=== PATIENT | male | born 1975 | race Caucasian/White ===

== ENCOUNTER 2017-06-03 14:51 | Emergency (ER) | payer OTHER ==
[2017-06-03] MEDS ORDERED: NITROGLYCERIN (SL) 0.4 MG TAB SL (18:00)
[2017-06-03] MEDS: ASPIRIN 325 MG TAB PO (18:09)
[2017-06-03 18:11] LABS: ADD MAN DIFF? NO
[2017-06-03 18:13] LABS: BASOPHILS % 0.3 % (0.0-2.0); EOSINOPHILS # 0.3 10^3/ul (0.0-0.5); EOSINOPHILS % 2.1 % (0.0-7.0); HEMATOCRIT 49.2 % (42.0-52.0); HEMOGLOBIN 16.9 g/dl (14.0-18.0); LYMPHOCYTES # 3.1 10^3/ul (0.8-2.9); LYMPHOCYTES % 23.1 % (15.0-51.0); MEAN CORPUSCULAR HEMOGLOBIN 29.1 pg (29.0-33.0); MEAN CORPUSCULAR HGB CONC 34.3 g/dl (32.0-37.0); MEAN CORPUSCULAR VOLUME 84.7 fl (82.0-101.0); MONOCYTE # 0.7 10^3/ul (0.3-0.9); MONOCYTES % 5.3 % (0.0-11.0); NEUTROPHIL # 9.3 10^3/ul (1.6-7.5); PLATELET COUNT 195 10^3/UL (140-415); RED BLOOD COUNT 5.81 10^6/ul (4.70-6.10); RED CELL DISTRIBUTION WIDTH 13.2 % (11.5-14.5)
[2017-06-03 18:13] LABS: WHITE BLOOD COUNT 13.4 10^3/ul (4.8-10.8)
[2017-06-03 18:30] LABS: INR 0.97; PARTIAL THROMBOPLASTIN TIME 29.5 Sec (25.0-35.0)
[2017-06-03 18:31] LABS: ALANINE AMINOTRANSFERASE 46 IU/L (13-69); ALBUMIN/GLOBULIN RATIO 1.38; ALKALINE PHOSPHATASE 78 IU/L (42-121); ANION GAP 17 (8-16); ASPARTATE AMINO TRANSFERASE 23 IU/L (15-46); BILIRUBIN,INDIRECT 0.3 mg/dl (0-1.1); BILIRUBIN,TOTAL 0.3 mg/dl (0.2-1.3); BLOOD UREA NITROGEN 17 mg/dl (7-20); CALCIUM 10.1 mg/dl (8.4-10.2); CARBON DIOXIDE 25 mmol/L (21-31); CHLORIDE 103 mmol/L (97-110); CREATINE KINASE 141 IU/L (23-200); CREATININE 1.12 mg/dl (0.61-1.24); GLUCOSE 94 mg/dl (70-220); POTASSIUM 4.1 mmol/L (3.5-5.1); SODIUM 141 mmol/L (135-144); TOTAL PROTEIN 8.6 g/dl (6.1-8.1)
[2017-06-03 18:44] LABS: CK INDEX 1.1
[2017-06-03 18:45] LABS: B-TYPE NATRIURETIC PEPTIDE < 11 PG/ML (0-125); CK-MB 1.57 ng/ml (0.0-2.4); TROPONIN-I < 0.012 ng/ml (0.00-0.12)
[2017-06-03] MEDS: KETOROLAC 30 MG INJ IV (19:18)
== END 2017-06-03 19:26 | disposition home or self-care (01) ==
LOC: E/R 14:51
DX: M94.0 Chondrocostal junction syndrome [Tietze] (principal); F17.210 Nicotine dependence, cigarettes, uncomplicated; R40.2142 Coma scale, eyes open, spontaneous, at arrival to emergency department; R40.2252 Coma scale, best verbal response, oriented, at arrival to emergency department; R40.2362 Coma scale, best motor response, obeys commands, at arrival to emergency department; G44.209 Tension-type headache, unspecified, not intractable; R07.9 Chest pain, unspecified; Z79.82 Long term (current) use of aspirin
CPT/HCPCS: 36415; 70450; 71045; 80053; 82550; 82553; 83880; 84484; 85025; 85610; 85730; 93005; 99285-25

== ENCOUNTER 2017-12-20 15:35 | Emergency (ER) | payer OTHER ==
[2017-12-20 16:31] LABS: ADD MAN DIFF? NO
[2017-12-20] MEDS: IBUPROFEN 800 MG TAB PO (16:31)
[2017-12-20 16:36] LABS: WHITE BLOOD COUNT 10.6 10^3/ul (4.8-10.8)
[2017-12-20 16:36] LABS: BASOPHILS % 0.4 % (0.0-2.0); EOSINOPHILS # 0.2 10^3/ul (0.0-0.5); EOSINOPHILS % 2.1 % (0.0-7.0); HEMATOCRIT 45.8 % (42.0-52.0); HEMOGLOBIN 15.7 g/dl (14.0-18.0); LYMPHOCYTES % 28.7 % (15.0-51.0); MEAN CORPUSCULAR HEMOGLOBIN 29.5 pg (29.0-33.0); MEAN CORPUSCULAR HGB CONC 34.3 g/dl (32.0-37.0); MEAN CORPUSCULAR VOLUME 86.1 fl (82.0-101.0); MEAN PLATELET VOLUME 11.5 fl (7.4-10.4); MONOCYTE # 0.6 10^3/ul (0.3-0.9); MONOCYTES % 5.8 % (0.0-11.0); NEUTROPHIL # 6.7 10^3/ul (1.6-7.5); NEUTROPHILS % 62.8 % (39.0-77.0); PLATELET COUNT 195 10^3/UL (140-415); RED BLOOD COUNT 5.32 10^6/ul (4.70-6.10); RED CELL DISTRIBUTION WIDTH 12.6 % (11.5-14.5)
[2017-12-20 16:48] LABS: ADD UMIC NO; UR ASCORBIC ACID NEGATIVE (NEGATIVE); UR BILIRUBIN (Dip) NEGATIVE (NEGATIVE); UR BLOOD (Dip) NEGATIVE (NEGATIVE); UR CLARITY CLEAR (CLEAR); UR COLOR YELLOW (YELLOW); UR GLUCOSE (Dip) NEGATIVE (NEGATIVE); UR KETONES (Dip) NEGATIVE (NEGATIVE); UR LEUKOCYTE ESTERASE (Dip) NEGATIVE Leu/ul (NEGATIVE); UR NITRITE (Dip) NEGATIVE (NEGATIVE); UR SPECIFIC GRAVITY (Dip) 1.023 (1.003-1.030); UR TOTAL PROTEIN (Dip) NEGATIVE (NEGATIVE); UR UROBILINOGEN (Dip) 1+ mg/dL (NEGATIVE)
[2017-12-20 16:55] LABS: ANION GAP 16 (8-16); BLOOD UREA NITROGEN 13 mg/dl (7-20); CALCIUM 9.8 mg/dl (8.4-10.2); CARBON DIOXIDE 30 mmol/L (21-31); CHLORIDE 105 mmol/L (97-110); CHOLESTEROL 217 mg/dl (100-200); CREATININE 1.16 mg/dl (0.61-1.24); GLUCOSE 101 mg/dl (70-220); HDL CHOLESTEROL 27 mg/dl (27-67); INR 0.92; LDL CHOLESTEROL,CALCULATED 107 mg/dl; PARTIAL THROMBOPLASTIN TIME 28.1 Sec (25.0-35.0); PROTIME 12.4 Sec (11.9-14.9); SODIUM 147 mmol/L (135-144); TRIGLYCERIDES 414 mg/dl (0-149)
[2017-12-20 17:06] LABS: TROPONIN-I < 0.012 ng/ml (0.000-0.120)
[2017-12-20 17:07] LABS: AMPHETAMINE/METHAMPHETAMINE Negative (NEGATIVE); BARBITURATES Negative (NEGATIVE); BENZODIAZEPINES Negative (NEGATIVE); CANNABINOIDS Negative (NEGATIVE); COCAINE Negative (NEGATIVE); OPIATES Negative (NEGATIVE)
[2017-12-20 17:18] LABS: HEMOGLOBIN A1C 5.7 % (0-5.9)
== END 2017-12-20 20:47 | disposition home or self-care (01) ==
LOC: E/R 15:35
DX: R20.0 Anesthesia of skin (principal); F17.210 Nicotine dependence, cigarettes, uncomplicated; R07.9 Chest pain, unspecified; Z79.82 Long term (current) use of aspirin
CPT/HCPCS: 36415; 70450; 71045; 72125; 80048; 80061; 80307; 81003; 83036; 84484; 85025; 85610; 85730; 93005; 99285-25

== ENCOUNTER 2018-04-01 11:48 | Emergency (ER) | payer OTHER ==
[2018-04-01 13:41] LABS: ADD MAN DIFF? NO
[2018-04-01] MEDS: KETOROLAC 30 MG INJ IV (13:45)
[2018-04-01 13:48] LABS: WHITE BLOOD COUNT 10.8 10^3/ul (4.8-10.8)
[2018-04-01 13:48] LABS: BASOPHIL # 0.1 10^3/ul (0.0-0.1); BASOPHILS % 0.5 % (0.0-2.0); EOSINOPHILS # 0.2 10^3/ul (0.0-0.5); EOSINOPHILS % 1.6 % (0.0-7.0); HEMATOCRIT 47.5 % (42.0-52.0); LYMPHOCYTES # 2.9 10^3/ul (0.8-2.9); LYMPHOCYTES % 26.4 % (15.0-51.0); MEAN CORPUSCULAR HEMOGLOBIN 29.1 pg (29.0-33.0); MEAN CORPUSCULAR HGB CONC 33.7 g/dl (32.0-37.0); MEAN CORPUSCULAR VOLUME 86.4 fl (82.0-101.0); MEAN PLATELET VOLUME 11.7 fl (7.4-10.4); MONOCYTE # 0.5 10^3/ul (0.3-0.9); MONOCYTES % 4.6 % (0.0-11.0); NEUTROPHIL # 7.2 10^3/ul (1.6-7.5); NEUTROPHILS % 66.5 % (39.0-77.0); PLATELET COUNT 205 10^3/UL (140-415); RED CELL DISTRIBUTION WIDTH 12.9 % (11.5-14.5)
[2018-04-01 13:59] LABS: URINE BLOOD (Dip) POC Negative (NEGATIVE); URINE GLUCOSE (Dip) POC Negative (NEGATIVE); URINE KETONES (Dip) POC Negative (NEGATIVE); URINE LEUKOCYTE EST (Dip) POC Negative (NEGATIVE); URINE NITRITE (Dip) POC Negative (NEGATIVE); URINE TOTAL PROTEIN POC Negative (NEGATIVE)
[2018-04-01 14:05] LABS: ALANINE AMINOTRANSFERASE 42 IU/L (13-69); ALBUMIN 4.8 g/dl (3.3-4.9); ALBUMIN/GLOBULIN RATIO 1.41; ALKALINE PHOSPHATASE 76 IU/L (42-121); ANION GAP 11 (5-13); ASPARTATE AMINO TRANSFERASE 24 IU/L (15-46); BILIRUBIN,INDIRECT 0.5 mg/dl (0-1.1); BILIRUBIN,TOTAL 0.5 mg/dl (0.2-1.3); BLOOD UREA NITROGEN 12 mg/dl (7-20); CALCIUM 9.7 mg/dl (8.4-10.2); CARBON DIOXIDE 27 mmol/L (21-31); CHLORIDE 104 mmol/L (97-110); CREATININE 1.11 mg/dl (0.61-1.24); Estimated GFR > 60 mL/min (>60); GLUCOSE 99 mg/dl (70-220); LIPASE 68 U/L (23-300); POTASSIUM 4.2 mmol/L (3.5-5.1); SODIUM 142 mmol/L (135-144); TOTAL PROTEIN 8.2 g/dl (6.1-8.1)
== END 2018-04-01 15:38 | disposition home or self-care (01) ==
LOC: E/R 11:48
DX: H92.01 Otalgia, right ear (principal); R10.11 Right upper quadrant pain; Z79.82 Long term (current) use of aspirin; Z87.891 Personal history of nicotine dependence
CPT/HCPCS: 36415; 76705; 80053; 81003; 83690; 85025; 93005; 96374; 99285-25